=== PATIENT | male | born 1955 | race Caucasian/White ===

== ENCOUNTER 2024-09-20 19:13 | Inpatient (IN) | payer MEDICARE, SELFPAY ==
[2024-09-20] VITALS (7 sets, daily range): BP systolic 90–108; BP diastolic 60–83; PULSE 104–127; RESP 18–20; TEMP 36.6–36.8; O2SAT 95–100; BMI 45.6; BMI 44.2
--- NOTE | 2024-09-20 19:33 | RAD_ITS ---
PROCEDURE: CHEST 1 VIEW (PORTABLE) REASON FOR EXAM: 69-year-old male, chest tightness, bilateral lower extremity edema and right upper extremity edema. TECHNIQUE: Frontal view of the chest. COMPARISON: None. FINDINGS: Visualization is slightly limited by body habitus. There is severe cardiomegaly and prominent pulmonary vasculature. Small right and trace left pleural effusions. No focal consolidation or pneumothorax. The bones are unremarkable. RAD/Chest 1 View (Portable) IMPRESSION: Findings of CHF/fluid overload. Reading Location: [id number]
--- NOTE | 2024-09-20 19:33 | EKG12_ITS ---
Test Reason : CP Blood Pressure : */* mmHG Vent. Rate : 116 BPM Atrial Rate : * BPM P-R Int : * ms QRS Dur : 84 ms QT Int : 282 ms P-R-T Axes : * 52 191 degrees QTcB Int : 391 ms Atrial fibrillation with rapid ventricular response Low voltage QRS Nonspecific T wave abnormality Abnormal ECG No previous ECGs available Confirmed by JONE PHAN, TUCKER ([id number]), content editor GILDA ALMONTE ([id number]) on 09/23/2024 1:06:38 PM Referred By: JUDY Confirmed By: TUCKER BECERRIL MD
[2024-09-20 19:45] LABS: Absolute Lymphocyte Count 0.57 X10^3/uL (0.83-4.51); Basophil# 0.02 X10^3/uL; Basophil% 0.1 % (0-1); Eosinophil# 0.02 X10^3/uL; Eosinophils% 0.1 % (0-5); Hematocrit 43.4 % (40-54); Hemoglobin 13.7 g/dL (13.0-16.5); Lymphocyte # 0.57 X10^3/ul (0.83-4.51); Lymphocyte % 4.1 % (19-41); Mean Corp Hgb Conc 31.6 g/dL (32-36); Mean Corpuscular Hgb 30.8 pg (27.0-32.0); Mean Corpuscular Volume 97.5 fL (80-94); Mean Platelet Vol. 10.4 fl (6.2-12.0); Monocyte# 1.17 X10^3/uL; Monocyte% 8.4 % (0-10); NRBC Flagged by Analyzer 0 % (0-5); Neutrophil # 12.04 X10^3/uL (2.7-7.7); POSITIVE DIFFERENTIAL YES; Platelet Count 213 K/mm3 (150-450); RBC Distribution Width CV 15.6 % (11.6-14.6); RBC Distribution Width SD 55.1 fl (35.1-43.9); Red Blood Count 4.45 M/mm3 (4.6-6.2); White Blood Count 13.9 K/mm3 (4.4-11.0)
[2024-09-20 19:53] LABS: International Normalized Ratio 1.3; Prothrombin Time (Protime)PT. 16.2 SECONDS (11.7-14.9)
[2024-09-20 20:15] LABS: Anion Gap 9 (5-15); BUN 77 mg/dL (7-18); BUN/Creat Ratio 26.9 RATIO (10-20); Calcium,Total 9.8 mg/dL (8.5-10.1); Chloride 109 mmol/L (98-107); Creatinine, Serum 2.86 mg/dL (0.70-1.30); EST Glomerular Filtration Rate 23 mL/min (>60); Est Glom Filt Rate - Afr Amer 28 mL/min (>60); Glucose 89 mg/dL (74-106); Potassium 5.2 mmol/L (3.5-5.1); Sodium Level 138 mmol/L (136-145); Troponin-I HS (w/2H Reflex) 1055 pg/mL (3.0-78.0)
--- NOTE | 2024-09-20 20:23 | EDS_ITS ---
HPI History of Present Illness Chief Complaint: Chest Pain Detail of Chief Complaint: Chest tightness with shortness of breath nausea and radiation to the right Informant: patient Onset/Context/Timing Onset: Today (1300) Activity at onset: light activity (Patient was bathing himself) Timing: Intermittent Quality: Positive for Tightness Location: Substernal Current Severity: Gone Maximum Severity: Moderate Worsened By: Nothing Relieved By: Nothing Associated Symptoms: Positive for Nausea, Dyspnea and - (Radiation to the right shoulder); Negative for Vomiting, Diaphoresis, Cough, Fever, Lightheadedness, Acid Reflux or Palpitations Narrative Narrative: Patient is a 69-year-old male. He has history of gout, hypertension, atrial fibrillation on Eliquis, hypercholesterolemia who presents because of chest tightness that started at 1300 while bathing himself associated with nausea and shortness of breath and radiation to his right shoulder. He states this morning when he awoke his right hand was swollen. He now reports swelling of his entire right arm with discoloration. He has swelling of his legs and feet that are chronic with discoloration. Patient did not take his Eliquis this morning. Patient is on metoprolol for rate control. He discontinued his digoxin 3 weeks ago. He thought he had a refill. He did not. Apparently his doctor retired and he is scheduled to see the nurse practitioner. He moved from the [facility]. Patient denies fever, chills night sweats. Nu[place] headache, visual, ocular auditory symptoms. Patient denies upper respiratory symptoms. Prior Similar Symptoms: No Recent Illness/Hospitalization: No CVD Risk Factors: Positive for Hypertension and Hypercholesterolemia; Negative for Diabetes or Family History 1' </=55 PE Risk Factors: Negative for Recent Travel/Surgery, Recent Immobilization, Prior DVT or PE, Cancer or OCP + Smoking + >/=35 TAD Risk Factors: Positive for Hypertension; Negative for Marfan's Syndrome or Family History [facility] Medical History (Updated 09/20/24 @ 22:[address] Dalton Hawk, DO) Atrial fibrillation GERD (gastroesophageal reflux disease) CHF (congestive heart failure) Hyperlipemia Hypertension Gout Home Medications ?Medication ?Instructions ?Recorded ?Last Taken ?Type amlodipine 10 mg tablet 20 mg PO QHS 09/20/24 Unknow n History apixaban 5 mg tablet (Eliquis) 5 mg PO BID 09/20/24 Un known History atorvastatin 40 mg tablet 40 mg PO QPM 09/20/24 Unknow n History digoxin 125 mcg (0.125 mg) tablet 125 mcg PO DAILY 07/04 Unknown History lisinopril 20 2 tab PO DAILY 09/20/24 Unkn own History mg-hydrochlorothiazide 25 mg tablet (Zestoretic) metoprolol succinate 50 mg 100 mg PO DAILY 09/20/24 Un known History tablet,extended release 24 hr Allergy/AdvReac Type Severity Reaction Status Date / Time No Known Allergies Allergy Verified 09/20/24 19:18 Surgical History (Updated 09/20/24 @ 20:27 by Maryam Jha) History of partial surgical removal of colon Hx of cholecystectomy Social History (Updated 09/20/24 @ 20:[address] Sawyer Franco MD) household members: spouse Smoking Status: Former smoker ROS ROS ED Constitutional Constitutional ED: Denies chills, fever(s), subjective, sweats or weight loss Eyes Eyes: Reports none ENT ENT ED: Denies ear pain or rhinorrhea Cardiovascular Cardiovascular: Reports as per HPI and orthopnea; Denies paroxysmal nocturnal dyspnea Respiratory/Chest Respiratory/Chest: Reports dyspnea, dyspnea on exertion, orthopnea and other Details: Patient has stable 3 pillow orthopnea. ; Denies cough, paroxysmal nocturnal dyspnea or sputum Gastrointestinal Gastrointestinal: Reports nausea; Denies abdominal pain or vomiting Genitourinary Genitourinary ED: Denies dysuria, hematuria or urinary frequency Musculoskeletal Musculoskeletal: Denies arthralgias or myalgias Integumentary Reports rash Neurologic Neurologic: Denies paresthesias or weakness Hematologic/Lymphatic Hematologic/Lymphatic: Denies easy bleeding or easy bruising EXAM Physical Exam Const Vital Signs: 09/20/24 19:16 09/20/24 20:15 09/20/24 20:23 Temperature 98.2 F Temperature Source Oral Pulse Rate 127 H 111 H Respiratory Rate 18 20 H Respiratory Effort Respiratory Pattern Blood Pressure 108/83 H 98/79 Blood Pressure Mean 91 85 Pulse Ox 100 95 95 Oxygen Delivery Method Room Air Room Air Room Air 09/20/24 20:23 09/20/24 21:00 09/20/24 22:00 Temperature Temperature Source Pulse Rate 105 H 105 H Respiratory Rate 18 18 Respiratory Effort Short of Breath Labored Accessory Muscle Use Respiratory Pattern Tachypnea Blood Pressure 101/72 90/60 Blood Pressure Mean 81 70 Pulse Ox 98 95 Oxygen Delivery Method Room Air Room Air 09/20/24 22:09 Temperature 98.3 F Temperature Source Pulse Rate 104 H Respiratory Rate 18 Respiratory Effort Respiratory Pattern Blood Pressure 90/60 Blood Pressure Mean 70 Pulse Ox 95 Oxygen Delivery Method Positive well nourished and well developed Constitutional Narrative: BMI is 45.7. General Appearance ED: well developed; Negative for pallor HEENT Reports dry mucous membranes HEENT Narrative: Head is atraumatic normocephalic. Patient has poor dentition. Uvula midline. No deviation with protrusion. normocephalic and atraumatic Mouth ED: Yes dry mucous membranes Mouth: dry mucous membranes Eyes PERRL and EOMs intact bilaterally General Eye ED: Negative for pale conjunctiva or scleral icterus Neck no lymphadenopathy, supple and no JVD Neck Narrative: Unable to assess for JVD due to body habitus. Chest Wall inspection of chest normal and palpation of chest normal Resp normal respiratory effort and No clear to auscultation bilaterally Auscultation: rales bilateral base Cardio no murmurs Rate: tachycardic Rhythm: abnormal rhythm irregularly irregular GI normal to inspection, nondistended, normoactive bowel sounds, soft to palpation, non-tender and non-distended; Negative for hepatosplenomegaly or no masses GI Narrative: Abdominal exam limited due to body habitus. Back/Spine no CVA tenderness Extremity Extremity Narrative: Venous stasis dermatitis with pitting edema of the lower extremities. Difficult to palpate pulse due to amount of edema lower extremity exam right upper extremity. Neuro oriented x3 and CN's II-XII intact bilaterally Sensorium / Orientation: awake and alert Psych mental status grossly normal Skin No no rashes or lesions noted Skin Narrative: Venous stasis dermatitis General Skin Exam: Negative for jaundice or pallor Heart Score History: Highly Suspicious ECG: Nonspecific Repolarization Age: >/= 65 years Risk Factors: 1 or 2 Risk Factors Troponin: >/=3 x Normal Limit Score: 8 MDM MDM MDM Narrative Medical decision making narrative: Patient's history is concerning for cardiac ischemia. Clinically he is fluid overloaded. He also has suspicion for DVT of the right upper extremity. Vascular study is not available at this time. Since patient's last dose of Eliquis was last night will start on heparin for non-STEMI. Will administer metoprolol for his heart rate and since he was on dig we will give him a dose of dig as well. There are no old labs for comparison. Nurse protocol was initiated in triage. Lab Data Lab results narrative: White count slightly elevated 13.9 which is nonspecific. He has has no bandemia. H&H is normal. Coags reveal slight elevation of PT. Electrolyte panel mL mild hyper per kalemia. CO2 is 20 with a normal anion gap. BUN and creatinine are 77 and 2.86. Patient not know baseline. Glucose is normal. Troponin is 1055. Labs: Laboratory Results - last 24 hr 09/20/24 09/20/24 09/20/24 19:15 20:46 21:48 WBC 13.9 H RBC 4.45 L Hgb 13.7 Hct 43.4 MCV 97.5 H MCH 30.8 MCHC 31.6 L RDW Std Deviation 55.1 H RDW Coeff of Bobbi 15.6 H Plt Count 213 MPV 10.4 Immature Gran % (Auto) 0.300 Neut % (Auto) 87.0 H Lymph % (Auto) 4.1 L Troup % (Auto) 8.4 Eos % (Auto) 0.1 Baso % (Auto) 0.1 Absolute Neuts (auto) 12.0 H Absolute Lymphs (auto) 0.57 L Nucleated RBC % 0 PT 16.2 H 17.4 H INR 1.3 1.4 APTT 37.3 H Sodium 138 Potassium 5.2 H Chloride 109 H Carbon Dioxide 20.0 L Anion Gap 9 BUN 77 H Creatinine 2.86 H Est GFR (MDRD) Af Amer 28 L Est GFR (MDRD) Non-Af 23 L BUN/Creatinine Ratio 26.9 H Glucose 89 Calcium 9.8 Troponin I High Sens 1055 H* 4392 H* Radiography Chest X-Ray - ED: 1 View and Read by ED Physician (Single view chest x-ray reveals findings consistent with congestive heart failure with mild pleural effusion. Borderline cardiomegaly.) Diagnostic Testing: Clinical Impression(s) from Imaging Studies Chest X-Ray 09/20/24 19:33 IMPRESSION: Findings of CHF/fluid overload. Reading Location: [facility] EKG Initial EKG: Attestation: I personally reviewed and interpreted this EKG as follows: Interpretation: Atrial Fibrillation (Rate is 116. Cures duration 84 ms. QT duration 282 ms. Bertrand is normal. There is evidence of low voltage which may be due to body habitus. He also has nonspecific ST-T wave changes which may be due to atrial fibs or cardiac ischemia. There is no old EKG for comparison.) Management Discussion w/another healthcare provider: Hospitalist (Case was discussed with Dr. Sinclair. He was informed the patient is a non-STEMI, A-fib RVR and CHF. Also need to evaluate for DVT of the right upper extremity.) Treatment and Re-Evaluation :: With a heart score of 8 will contact hospitalist for admission. Critical Care Time Critical Care Time: Yes Critical care time (excluding procedures): 30-74 minutes (32), Including time spent: (History, physical, documentation, independent rotation of laboratory results, chest x-ray and treatment for non-ST elevation PA with A-fib RVR and heart failure.), Discussing w/Patient &/or Family/Life Skills Coordinator, Discussing w/Consultants and Arranging Admission or Transfer Discharge Plan Dx/Rx/DC Orders Clinical Impression: Non-ST elevated myocardial infarction, Atrial fibrillation with RVR, Acute exacerbation of CHF (congestive heart failure), Lymphedema of both lower extremities, Swelling of right upper extremity, Hypotension Disposition Disposition: Acute Care Hospital [facility] Discharge Date/Time: 09/20/24 22:39
[2024-09-20] MEDS: Metoprolol Tartrate 5 MG/5 ML Vial IV (20:57)
[2024-09-20] MEDS: Digoxin 250 MCG/ML Ampul IV (21:03)
[2024-09-20] MEDS: Heparin Injection (Vial) 5,000 UNIT/ML VIAL 4000 UNIT IV (21:05)
[2024-09-20] MEDS: HEPARIN/D5w 25,000 UNITS 25,000 UNITS/250 ML IV.SOLN. 10 UNITS CONT INF (21:06)
[2024-09-20 21:10] LABS: Partial Thromboplast Time 37.3 Seconds (24.1-36.2)
[2024-09-20 21:42] LABS: Reflex Troponin-HS? (from REC) Y
[2024-09-20 21:44] LABS: International Normalized Ratio 1.4; Prothrombin Time (Protime)PT. 17.4 SECONDS (11.7-14.9)
--- NOTE | 2024-09-20 21:59 | PCM.HP.STD ---
[facility] General Date of Admission: 09/20/24 Date of Service: 09/20/24 Chief Complaint: Chest Tightness, Palpitations, SOB and Right Arm Swelling. HPI Narrative PARVIZ CAM, is a 69 M with a past medical history of essential hypertension; on metoprolol, lisinopril-hydrochlorothiazide and amlodipine, hyperlipidemia; on atorvastatin, former history of tobacco abuse, morbid obesity; with BMI of 45.7 this admission, history of atrial fibrillation; on apixaban and recently stopped digoxin ~3 weeks ago when he ran out of this medication, CAD; s/p NSTEMI, chronic bilateral lower extremity edema with chronic venous stasis, history of cholecystectomy, history of partial resection of colon, GERD, gout and OA who presents to [facility] ER complaining of chest pain, palpitations, shortness of breath and severe swelling of the Right arm. Mr. Cam reports his symptoms began at approximately 1 PM earlier today while bathing when he developed the abrupt-onset of nausea and shortness of breath with severe chest tightness that was substernal and radiating into his Right shoulder. He went on to state that this morning when he awoke he noted that his right hand was swollen with discoloration of his and entire right arm that worsened throughout the day. Patient states that he did not take his apixaban this this morning - but he had been taking till that point in time. He also ran out of his digoxin approximately 3 weeks ago because he thought he had a refill but he did not and apparently his doctor retired and he was waiting for a scheduled appointment with a nurse practitioner as he recently moved from the [facility]. He admits to increasing lower extremity edema and has stable 3-pillow orthopnea with nausea but he denies fever, chills, visual changes, runny nose, sore throat, ear pain, abdominal pain, vomiting, dysuria, arthralgias, myalgias, headache or paresthesias but he does admit to a red area of infection on his Right calf for the past ~2 weeks he has been trying to treat unsuccessfully with topical antibiotic ointment. In the ER he was noted to have an elevated initial troponin of 1,055 pg/mL followed by a second upward trending troponin of 8,106 pg/mL consistent with non-ST elevation [place] complicated by severe Right upper extremity swelling and discoloration concerning for underlying DVT with corresponding elevated d-dimer of 3.3 present on admission compounded by CXR positive for findings of CHF/fluid overload with a corresponding elevated BNP of 691 pg/mL present on admission along with Atrial Fibrillation; with RVR and laboratory evidence of suspected GLENN with elevated serum creatinine of 2.86 mg/dL and BUN of 77 mg/dL present on admission (with no previous lab studies available for comparison) in addition to Hyperkalemia of 5.2 mmol/L present on admission and Leukocytosis of 13.9 K present on admission suspected to Right Calf with Cellulitis. He was then admitted to the PCU for ongoing care for stay that is expected to extend beyond 2 midnights. [facility], [facility] Medical History (Updated 09/21/24 @ 06:[address] Dalton Hawk DO) Atrial fibrillation GERD (gastroesophageal reflux disease) CHF (congestive heart failure) Hyperlipemia Hypertension Gout Home Medications ?Medication ?Instructions ?Recorded ?Last Taken ?Type allopurinol 300 mg tablet 300 mg PO DAILY gout 09/20/24 Unknown History amlodipine 10 mg tablet 20 mg PO QHS BP 09/20/24 09/19/24 History apixaban 5 mg tablet (Eliquis) 5 mg PO BID blood thinner 09/20/24 09/19/24 History atorvastatin 40 mg tablet 40 mg PO QPM cholesterol 09/20/24 09/19/24 History digoxin 125 mcg (0.125 mg) tablet 125 mcg PO DAILY 09/20/24 Unknown History lisinopril 20 2 tab PO DAILY BP 09/20/24 09/19/24 History mg-hydrochlorothiazide 25 mg tablet (Zestoretic) metoprolol succinate 50 mg 100 mg PO DAILY HR 09/20/24 09/19/24 History tablet,extended release 24 hr Allergy/AdvReac Type Severity Reaction Status Date / Time No Known Allergies Allergy Verified 09/20/24 19:18 Family History (Updated 09/20/24 @ 23:06 by Aislinn Salinas) Brother Diabetes Mother Diabetes Surgical History History of partial surgical removal of colon Hx of cholecystectomy Social History household members: spouse Smoking Status: Former smoker ROS ROS Narrative Review of Systems: Constitutional: Patient denies fever or chills. Eyes: Patient denies changes in vision or discharge from eyes. ENT: Patient denies runny nose, sore throat or ear pain. Resp: Patient admits to dyspnea on exertion that progressed to shortness of breath at rest as per HPI. CV: Patient admits to chest tightness of the substernal and intermittent with 3 pillow orthopnea as per HPI. GI: Patient admits to nausea but he denies vomiting, abdominal pain, diarrhea or constipation. : Patient denies dysuria, hematuria or urinary frequency. MSK: Patient admits to swelling and pain in his Right upper extremity as per HPI. Skin: Patient admits to swelling and discoloration of his Right upper extremity in addition to ne redness and swelling of his Right calf in the setting of chronic lower extremity lymphedema with chronic venous stasis. Psych: Patient denies symptoms of uncontrolled depression or anxiety. Neuro: Patient denies headache, paresthesias or focal neurologic deficits. Allergy: Patient denies lip swelling, tongue swelling or urticaria. Hematology: Patient denies easy bleeding or easy bruisability. Endocrinology: Patient denies polyuria, polydipsia or polyphagia. 14 point review of systems otherwise negative save for positives noted above in HPI. Vital Signs Vital Signs Vital Signs: 09/20/24 19:16 09/20/24 20:15 09/20/24 20:23 Temperature 98.2 F Temperature Source Oral Pulse Rate 127 H 111 H Respiratory Rate 18 20 H Respiratory Effort Respiratory Pattern Blood Pressure 108/83 H 98/79 Blood Pressure Mean 91 85 Pulse Ox 100 95 95 Oxygen Delivery Method Room Air Room Air Room Air 09/20/24 20:23 09/20/24 21:00 Temperature Temperature Source Pulse Rate 105 H Respiratory Rate 18 Respiratory Effort Short of Breath Labored Accessory Muscle Use Respiratory Pattern Tachypnea Blood Pressure 101/72 Blood Pressure Mean 81 Pulse Ox 98 Oxygen Delivery Method Room Air Weight Weight: 309 lb 4.937 oz Body Mass Index (BMI) 45.6 Physical Exam Const alert, oriented x3 and no apparent distress Constitutional Narrative: Morbidly obese. General Appearance: cooperative HEENT normocephalic, head/scalp atraumatic and hearing grossly normal bilaterally HEENT Narrative: Mucous membranes dry. Eyes PERRL, EOMs intact bilaterally and conjunctivae normal Neck no lymphadenopathy and supple Resp Resp Narrative: Diminished breath sounds throughout with bibasilar rales. Auscultation: rales Cardio Cardio Narrative: Irregularly irregular at approximately 104 bpm. GI normal to inspection, nondistended, normoactive bowel sounds, soft to palpation, non-tender and non-distended GI Narrative: Morbidly obese. Extremity Extremity Narrative: Right upper extremity appears swollen and discolored with sensitivity to palpation. Patient has evidence of chronic venous stasis dermatitis superimposed on chronic lower extremity lymphedema. Skin Skin Narrative: Right upper extremity appears swollen and discolored with sensitivity to palpation. Patient has evidence of chronic venous stasis dermatitis superimposed on chronic lower extremity lymphedema. Neuro oriented x3, CN's II-XII intact bilaterally, moves all extremities and no focal motor deficits Sensorium / Orientation: awake, alert, oriented to person, oriented to place and oriented to time Speech: speech normal Psych affect normal Results Medical Records Data Attestation: I reviewed the patient's medical records Lab / Micro Data Attestation: I reviewed the patient's lab results. 09/20/24 19:15 09/20/24 19:15 Labs: Laboratory Results - last 24 hr 09/20/24 19:15: WBC 13.9 H, RBC 4.45 L, Hgb 13.7, Hct 43.4, MCV 97.5 H, MCH 30.8, MCHC 31.6 L, RDW Std Deviation 55.1 H, RDW Coeff of Bobbi 15.6 H, Plt Count 213, MPV 10.4, Immature Gran % (Auto) 0.300, Neut % (Auto) 87.0 H, Lymph % (Auto) 4.1 L, Daniels % (Auto) 8.4, Eos % (Auto) 0.1, Baso % (Auto) 0.1, Absolute Neuts (auto) 12.0 H, Absolute Lymphs (auto) 0.57 L, Nucleated RBC % 0, PT 16.2 H, INR 1.3, Sodium 138, Potassium 5.2 H, Chloride 109 H, Carbon Dioxide 20.0 L, Anion Gap 9, BUN 77 H, Creatinine 2.86 H, Est GFR (MDRD) Af Amer 28 L, Est GFR (MDRD) Non-Af 23 L, BUN/Creatinine Ratio 26.9 H, Glucose 89, Calcium 9.8, Troponin I High Sens 1055 H* 09/20/24 20:46: PT 17.4 H, INR 1.4, APTT 37.3 H Imaging Radiology Impression Chest X-Ray 09/20/24 19:33 IMPRESSION: Findings of CHF/fluid overload. Reading Location: [id number] Imaging Services [address] [place] [address] [id number] Extremity Lower without Contra MR#: [id number] Acct: [id number] Name: PARVIZ CAM Rep #: [id number] : 1955 M 69 From: Elvis Christensen DO PCP: Care Physician,No Primary Status: ADM IN Study: Extremity Lower without Contra Date of Exam: 09/21/24 Exam# [id number] Ordering Dr: Dalton Hawk DO PROCEDURE: CT EXTREMITY LOWER RIGHT WITHOUT CONTRAST REASON FOR EXAM: Infection, redness, swelling. TECHNIQUE: Multiple, axial CT images of the right lower extremity are obtained without intravenous contrast. Coronal and sagittal 2D reformatted images were provided. COMPARISON: None. FINDINGS: There is diffuse subcutaneous edema involving the visualized right lower extremity with associated skin thickening. No loculated fluid collection is present to suggest abscess. There is diffuse muscular atrophy. There is partial visualization of a suprapatellar knee joint effusion. There is a soft tissue wound defect along the posterolateral aspect at the level of the mid fibula which measures approximately 4.1 x 3.0 cm in the cc and AP dimensions respectively. There are severe degenerative changes of the medial knee joint compartment. Plantar surface calcaneal spur is present. No acute fracture or dislocation is present. No acute osseous erosive changes are identified. CT/Extremity Lower without Contra IMPRESSION: 1. Soft tissue wound defect along the posterolateral aspect at the level of the mid fibula. 2. Diffuse subcutaneous edema with skin thickening likely related to a cellulitis. No definite loculated fluid collection to suggest abscess is seen. 3. Diffuse muscular atrophy. 4. Severe degenerative changes of the medial knee joint compartment. 5. Suprapatellar knee joint effusion. One or more dose reduction techniques were used (e.g., Automated exposure control, adjustment of the mA and/or kV according to patient size, use of iterative reconstruction technique). Reading Location: [facility] CC: Dr. 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: Signed Assessment & Plan Assessment/Plan (1) Non-ST elevated myocardial infarction: (2) Atrial fibrillation with RVR: (3) Acute exacerbation of CHF (congestive heart failure): QUALIFIERS: Heart failure type: unspecified Qualified Code(s): I50.9 - Heart failure, unspecified (4) Swelling of right upper extremity: (5) D-dimer, elevated: (6) Cellulitis: QUALIFIERS: Site of cellulitis: extremity Site of cellulitis of extremity: lower extremity Laterality: right Qualified Code(s): L03.115 - Cellulitis of right lower limb (7) Lymphedema of both lower extremities: (8) Hypotension: QUALIFIERS: Hypotension type: unspecified hypotension type Qualified Code(s): I95.9 - Hypotension, unspecified (9) GLENN (acute kidney injury): (10) Morbid obesity with BMI of 45.0-49.9, adult: PLAN: Plan 1. Elevated initial troponin of 1,055 pg/mL with second upwardly elevating troponin of 8,106 pg/mL consistent with non-ST elevation [place] in the setting of known previous CAD; with NSTEMI - Admit to PCU. Continue ECASA plus atorvastatin and start IV Heparin. Serialize troponin. Check echocardiogram to evaluate LVEF. Give acetaminophen prn for [id number] (level 1-5/10) pain or fever. Give morphine IV prn for severe (level 6-10/10) pain. Finally, we will consult [facility] to see this patient on rounds in the a.m. for further recommendations regarding [facility] this admission without appreciated in advance. 2. Atrial Fibrillation; with RVR after recent cessation of oral digoxin complicating #1 - Patient treated with IV digoxin in ER with order placed to resume oral digoxin as previous to minimize risk of hypotension. 3. AE CHF; of uncertain type with CXR positive for Fluid overload/CHF with corresponding elevated BNP of 691 pg/mL present on admission along with Hypotension of ~90 mmHg systolic present on admission compounding #1 & #2 - Give furosemide 40 mg IV daily and check daily BNP and CXR to follow trend of hopeful improvement. 4. Suspected GLENN with elevated serum creatinine of 2.86 mg/dL and BUN of 77 mg/dL present on admission (with no previous lab studies available for comparison) in addition to Hyperkalemia of 5.2 mmol/L present on admission adding to the medical complexity of #1 - #3 - Give IV albumin to expand intravascular volume without decreased concern worsening volume overload. Recheck renal indices and BMP daily to follow trend. 5. Leukocytosis of 13.9 K present on admission suspected to be due to Cellulitis of the Right Calf with fluid drainage (with CT negative for abscess) adding to the burden of disease outlined from #1 - #4 - Check CT scan of the RLE and start empiric IV piperacillin-tazobactam plus IV vancomycin and culture wound in addition to MRSA PCR of wound. 6. Morbid obesity; with BMI of 45.7 this admission - Weight loss will be recommended. Check TSH. This complicates his case and may hamper recovery. 7. Chronic bilateral lower extremity edema with chronic venous stasis - Noted. 8. Essential Hypertension; on metoprolol, lisinopril-hydrochlorothiazide and amlodipine - Hold scheduled antihypertensives with severe hypotension noted on admission. 9. Hyperlipidemia; on atorvastatin - Resume statin and check Lipid Profile in light of #1. 10. Former history of tobacco abuse - Noted. 11. History of cholecystectomy - Noted. 12. History of partial resection of colon - Noted. 13. GERD - Patient currently not on pharmacologic treatment. We will start pantoprazole 40 mg po daily in light of severe illness outlined above. 14. Gout - Stable with no evidence of acute flare. 15. OA - Give acetaminophen prn as per pain scale noted above. 16. DVT prophylaxis - Patient on IV Heparin for #1 & #2. Total time: Approximately (but not less than) 75 minutes. Charges/Coding Visit Charges Inpatient E&M: 36184 Init Hosp L3
[2024-09-20 22:28] LABS: Troponin-I HS 4392 pg/mL (3.0-78.0)
--- NOTE | 2024-09-20 22:31 | EKG12_ITS ---
Test Reason : ADMISSION EKG Blood Pressure : */* mmHG Vent. Rate : 111 BPM Atrial Rate : * BPM P-R Int : * ms QRS Dur : 88 ms QT Int : 326 ms P-R-T Axes : * 74 196 degrees QTcB Int : 443 ms Atrial fibrillation with rapid ventricular response Nonspecific T wave abnormality Abnormal ECG When compared with ECG of 20-Sep-2024 19:23, MANUAL COMPARISON REQUIRED DATA IS UNCONFIRMED Confirmed by Jerod Chang ([id number]), editor trade journal LIBIA HOFFMAN ([id number]) on 09/21/2024 11:29:42 AM Referred By: Confirmed By: Jerod Chang
--- NOTE | 2024-09-20 22:31 | VDUE_ITS ---
Reason For Study Reason For Study: Swelling Right Proximal Left Proximal Right jugular vein is spontaneous, widely patent, Left subclavian vein is spontaneous, widely patent, phasic, with no intraluminal echogenicity noted. phasic, with no intraluminal echogenicity noted. Right subclavian vein is spontaneous, widely patent, phasic, with no intraluminal echogenicity noted. Right Lower Arm Right radial vein is compressible. Right ulnar vein is compressible. Right Arm Right axillary vein is spontaneous, patent, phasic, competent, compressible and demonstrates augmentation. Right brachial vein is compressible. Right cephalic vein is compressible. Right basilic vein is compressible. Procedure This was a unilateral right upper extremity venous doppler examination. Exam performed portable in patient room. VL/Venous Duplex US, Unilateral Interpretation Summary Deep veins of the right upper extremity are patent and compressible segmentally . There is no evidence of deep vein thrombosis. Superficial veins of the right upper extremity are patent and compressible segm entally. There is no evidence of superficial vein thrombosis. Ordering Physician: Dalton Hawk Performed By: Denise Harris RVT and Student ???
[2024-09-20 22:58] LABS: CPK Total, Creatine Kinase 151 U/L (39-308)
[2024-09-20 23:06] LABS: Hemoglobin A1c 5.3 % (3.8-5.6)
[2024-09-21] VITALS (15 sets, daily range): BP systolic 80–102; BP diastolic 47–74; PULSE 62–129; RESP 13–20; TEMP 36.4–36.8; O2SAT 92–98
[2024-09-21 00:16] LABS: Cholesterol 137 mg/dL (200); High Density Lipoprotein 36 mg/dL; Triglycerides 76 mg/dL; Troponin-I HS 8106 pg/mL (3.0-78.0); Very Low Density Lipoprotein 15 mg/dL (5-40)
--- NOTE | 2024-09-21 00:16 | CT_ITS ---
PROCEDURE: CT EXTREMITY LOWER RIGHT WITHOUT CONTRAST REASON FOR EXAM: Infection, redness, swelling. TECHNIQUE: Multiple, axial CT images of the right lower extremity are obtained without intravenous contrast. Coronal and sagittal 2D reformatted images were provided. COMPARISON: None. FINDINGS: There is diffuse subcutaneous edema involving the visualized right lower extremity with associated skin thickening. No loculated fluid collection is present to suggest abscess. There is diffuse muscular atrophy. There is partial visualization of a suprapatellar knee joint effusion. There is a soft tissue wound defect along the posterolateral aspect at the level of the mid fibula which measures approximately 4.1 x 3.0 cm in the cc and AP dimensions respectively. There are severe degenerative changes of the medial knee joint compartment. Plantar surface calcaneal spur is present. No acute fracture or dislocation is present. No acute osseous erosive changes are identified. CT/Extremity Lower without Contra IMPRESSION: 1. Soft tissue wound defect along the posterolateral aspect at the level of the mid fibula. 2. Diffuse subcutaneous edema with skin thickening likely related to a cellulit is. No definite loculated fluid collection to suggest abscess is seen. 3. Diffuse muscular atrophy. 4. Severe degenerative changes of the medial knee joint compartment. 5. Suprapatellar knee joint effusion. One or more dose reduction techniques were used (e.g., Automated exposure contr ol, adjustment of the mA and/or kV according to patient size, use of iterative reconstruction technique). Reading Location: [facility]
[2024-09-21] MEDS: Albumin Human 25% (100 mL) 25 GM/100 ML BAG IV (00:29)
[2024-09-21] MEDS: Aspirin 81 MG TAB.CHEW 324 MG PO (00:29)
[2024-09-21] MEDS: Vancomycin HCl 2,000 MG in 0.9% Normal Saline (500mL Bag) 500 ML 250 MG IV (01:09)
[2024-09-21] MEDS: Piperacil/Tazobactam 3.375 GM in 0.9% Normal Saline (50mL MB+) 50 ML IV ×4 (01:12→21:15)
--- NOTE | 2024-09-21 02:54 | PCM.RX.CS ---
Consult Antibiotic Management Pharmacy has been consulted to manage selected antibiotic: Vancomycin Type of Intervention Type of Consult: New start Labs Labs: Sodium 138 mmol/L (136-145) 09/20/24 19:15 Potassium 5.2 mmol/L (3.5-5.1) H 09/20/24 19:15 Chloride 109 mmol/L (98-107) H 09/20/24 19:15 Carbon Dioxide 20.0 mmol/L (21.0-32.0) L 09/20/24 19:15 Anion Gap 9 (5-15) 09/20/24 19:15 BUN 77 mg/dL (7-18) H 09/20/24 19:15 Creatinine 2.86 mg/dL (0.70-1.30) H 09/20/24 19:15 Est GFR (MDRD) Af Amer 28 mL/min (>60) L 09/20/24 19:15 Est GFR (MDRD) Non-Af 23 mL/min (>60) L 09/20/24 19:15 BUN/Creatinine Ratio 26.9 RATIO (10-20) H 09/20/24 19:15 Glucose 89 mg/dL (74-106) 09/20/24 19:15 Dosing Weight Weight used for dosin kg Estimated Creatinine Clearance Estimated Creatinine Clearance: 32.9 Goal Trough Goal Trough: 10-15 mcg/mL Pharmacy Plan for Drug Dosing Pharmacy Plan for Drug Dosing: Pharmacy Service will continue to monitor and adjust dosing as required. LOADING DOSE 2GM GIVEN 09/21 @ 0109. START 1250MG Q24H AND DRAW TROUGH PRIOR TO 3RD DOSE Follow-Up Labs Follow-Up Labs: Trough: Vancomycin Date/Time Labs Ordered Labs to be done on [date and time ordered]: 09/23 @ 0100
[2024-09-21 03:51] LABS: Partial Thromboplast Time 153.8 Seconds (24.1-36.2)
[2024-09-21] MEDS: Acetaminophen 325 MG Tablet 650 MG PO (05:32)
--- NOTE | 2024-09-21 05:55 | ECHOD_ITS ---
Reason For Study Reason For Study: NSTEMI Procedure This was a 2D Doppler, Color Flow transthoracic echocardiogram. Exam performed portable in patient room. Left Ventricle Normal LV size. The left ventricular ejection fraction is 30 %. There is moderate to severe global hypokinesis of the left ventricle. Right Ventricle Normal RV size. Normal systolic function. Atria The left atrium is severely enlarged. The right atrium is moderately enlarged. Mitral Valve Bileaflet diffuse mitral valve thickening. Moderate (2+) eccentric mitral valve insufficiency. Tricuspid Valve Normal tricuspid valve. Moderate (2+) tricuspid valve insufficiency. Pulmonary artery systolic pressure is 58 mmHg. Moderate pulmonary hypertension. Aortic Valve Trisinus/trileaflet aortic valve. Moderate focal aortic valve calcification. Peak aortic valve gradient 72 mmHg. Mean aortic valve gradient 43 mmHg. Severe aortic stenosis. Moderately severe (3+) aortic valve insufficiency. Pulmonic Valve Normal pulmonic valve. Mild (1+) pulmonic valve insufficiency. Great Vessels Normal aortic root. The pulmonary artery is normal size. The inferior vena cava is dilated. Pericardium/Pleural No pericardial effusion. Small left pleural effusion. MMode/2D Measurements & Calculations LVIDd: 5.3 cm IVSd: 0.98 cm LVOT diam: 2.0 cm LVIDs: 4.1 cm LVPWd: 1.1 cm LVOT area: 3.1 cm2 RVDd: 4.7 cm FS: 23.1 % Ao root diam: 2.9 cm LAV(MOD-bp): 127.7 ml LVAd ap4: 35.1 cm2 LAV(MOD-bp) Indexed: 52.1 ml/m2 LVLd ap4: 9.7 cm LAV(MOD-sp2): 113.3 ml EDV(MOD-sp4): 107.2 ml LAV(MOD-sp4): 135.0 ml EDV(sp4-el): 107.9 ml LVAs ap4: 28.5 cm2 LVLs ap4: 9.3 cm ESV(MOD-sp4): 74.1 ml ESV(sp4-el): 74.4 ml EF(MOD-sp4): 30.9 % EF(sp4-el): 31.1 % LVAd ap2: 46.0 cm2 SV(MOD-sp4): 33.1 ml SV(MOD-sp2): 49.7 ml LVLd ap2: 10.4 cm SI(MOD-sp4): 13.5 ml/m2 SI(MOD-sp2): 20.3 ml/m2 EDV(MOD-sp2): 168.8 ml EDV(sp2-el): 173.0 ml LVAs ap2: 37.4 cm2 LVLs ap2: 9.7 cm ESV(MOD-sp2): 119.2 ml ESV(sp2-el): 122.9 ml EF(MOD-sp2): 29.4 % SV(sp4-el): 33.5 ml LA dimension(2D): 5.4 cm LA A4 area: 34.8 cm2 RA A4 area: 28.7 cm2 Doppler Measurements & Calculations MV E max frederic: 97.5 cm/sec Ao V2 max: 421.3 cm/sec AI max frederic: 339.3 cm/sec Ao max P.5 mmHg AI max P.1 mmHg Ao V2 mean: 313.0 cm/sec Ao mean P.3 mmHg AI dec slope: 314.2 cm/sec2 Ao V2 VTI: 84.0 cm AI P1/2t: 316.3 msec AV (velocity ratio): 0.22 YOLI(I,D): 0.69 cm2 YOLI(V,D): 0.71 cm2 LV V1 max: 96.1 cm/sec SV(LVOT): 57.6 ml PA V2 max: 71.6 cm/sec LV V1 max P.8 mmHg LV V1 mean P.2 mmHg LV V1 mean: 69.5 cm/sec LV V1 VTI: 18.6 cm TR max frederic: 362.9 cm/sec TR max P.7 mmHg ECHO/Echo Complete Interpretation Summary Normal LV size. The left ventricular ejection fraction is 30 %. There is moderate to severe global hypokinesis of the left ventricle. The left atrium is severely enlarged. The right atrium is moderately enlarged. Moderate (2+) eccentric mitral valve insufficiency. Moderate pulmonary hypertension. Severe aortic stenosis. Moderately severe (3+) aortic valve insufficiency. Ordering Physician: Dalton Hawk Performed By: Nazanin Montano RDCS
--- NOTE | 2024-09-21 07:41 | PCM.CONS.C ---
Assessment & Plan Assessment/Plan (1) Aortic valve stenosis: QUALIFIERS: Cardiac valve disease etiology: nonrheumatic Qualified Code(s): I35.0 - Nonrheumatic aortic (valve) stenosis PLAN: Patient's aortic valve stenosis appears to be at significant by preliminary echocardiographic criteria and physical exam. He does appear to be in heart failure as well and appears to have depressed LV function on the pulmonary echo. The formal reading of the echo was pending at this time. Further recommendations will be pending the further evaluation of the patient's comorbid states and final echo readings. (2) Atrial fibrillation with RVR: PLAN: Patient is in atrial fibrillation with rapid ventricular spots which she has a known history of. He has been treated with combination metoprolol and Lanoxin for rate control and has been on Eliquis which she stopped at least 24 hours ago. The patient also had sudden onset of his right upper extremity edema yesterday. He has chronic bilateral lower extremity edema and venous stasis disease. (3) GLENN (acute kidney injury): PLAN: Patient denies any history of acute renal or chronic renal disease. However upon admission his GFR is 23 with a BUN of 77 and creatinine of 2.86. He was not on diuretic therapy other than hydrochlorothiazide in his home environment for hypertension therapy. He has been treated with IV furosemide since admission. As it does appear he is volume overloaded. (4) Swelling of right upper extremity: PLAN: Patient had sudden onset of his right upper extremity consistent with a possible DVT. Ultrasound is pending and the patient is currently on heparin. There is chronic bilateral lower extremity edema related to venous stasis disease. Further evaluation and treatment pending the outcome of the ultrasound. (5) Hyperlipemia: QUALIFIERS: Hyperlipidemia type: unspecified Qualified Code(s): E78.5 - Hyperlipidemia, unspecified PLAN: Patient has longstanding history of hyperlipidemia. He is on atorvastatin 40 mg daily in his home environment this will be continued. (6) CHF (congestive heart failure): QUALIFIERS: Heart failure type: systolic Heart failure chronicity: acute Qualified Code(s): I50.21 - Acute systolic (congestive) heart failure PLAN: Patient CHF is probably valvular as well as global LV systolic dysfunction. He does have significant aortic stenosis by physical exam and estimated minute peak gradient of 70 mmHg. The patient will be gently diuresed he does have signs of hypoperfusion with his renal function deteriorating which is new by his reports. I would also recommend that we hold his amlodipine and Zestoretic. We should try to gently reinstitute Lopressor 25 mg twice daily for rate control and reinstitute due to his Lanoxin. Lanoxin should probably be decreased to 0.125 mg every other day after a full milligram loading dose over the next couple of days. The patient is very complicated his troponins are elevated that is probably multifactorial it is highly likely he has coronary disease on top of his valvular heart disease and LV dysfunction. At some point in time he will need to be cathed for evaluation of his coronary anatomy. But we need to maximize his renal function and further evaluate the right upper extremity swelling. PLAN: Plan 1. Will continue with rate control with Lanoxin for his atrial fibrillation and gently add Lopressor tartrate 25 mg twice daily with hold parameters for blood pressure less than 90. 2. Continue with gentle diuresis and monitor his renal function for recovery. 3. Evaluate the right upper extremity with ultrasound which has been ordered. 4. Further definitive long-term management pending the outcome of the testing that is pending at this time. 5. Dr. Powers will be taken over the service tomorrow morning. HPI Consult Data Date of Consult: 09/21/24 HPI Narrative HPI Narrative: PARVIZ ORDONEZ, is a 69 M who presents history of atrial fibrillation controlled with Lanoxin and Eliquis. He also carries a history of hypertension hyperlipidemia former smoker morbid obesity his BMI of 45. He is not certain of how much of the apixaban he was taking. He knows he did not take it on Thursday day of admission. He has been off of his Lanoxin for approximately 3 weeks. He has a history of chronic venous stasis disease and is noted increasing bilateral lower extremity edema. He also has a history of chronic stable orthopnea. Patient denies any fevers or chills denies any type of an infectious process. He does not have a history of valvular heart disease to his knowledge his brother does have a cardiomyopathy but he has never been told he had a cardiomyopathy. On presentation the patient's initial troponin was 1055 his second troponin was up to 8000. He does have renal disease with a creatinine of 2.86 and a BUN of 77. We do not have any previous labs available. It does appear that he has cellulitis of his right lower extremity. What brought him to the hospital was approximately 1 PM to 06/29/2025 the patient while bathing developed abrupt onset of nausea and shortness of breath with chest tightness. This radiated into his right shoulder. He did state that earlier that day upon arising from sleep he noted that his right hand and entire right arm were discolored and swollen that worsened throughout the day on 09/20/2024. Patient denies any previous known history of coronary disease. He was seen in a train master at Dr. Scaheffer in [place] who retired and therefore he could not get back in to be seen. He admitted that he had not been seen routinely. An ultrasound of the right upper extremity and echocardiogram are pending at this time. The echo was being performed as I examined the patient it appears that he has significant aortic stenosis with global LV systolic dysfunction. There is also aortic valve insufficiency. [facility] Medical History (Updated 09/21/24 @ 08:[address] Jerod Chang MD) Atrial fibrillation GERD (gastroesophageal reflux disease) CHF (congestive heart failure) Hyperlipemia Hypertension Gout Home Medications ?Medication ?Instructions ?Recorded ?Last Taken ?Type allopurinol 300 mg tablet 300 mg PO DAILY gout 09/20/24 Unknown History amlodipine 10 mg tablet 20 mg PO QHS BP 09/20/24 09/19/24 History apixaban 5 mg tablet (Eliquis) 5 mg PO BID blood thinner 09/20/24 09/19/24 History atorvastatin 40 mg tablet 40 mg PO QPM cholesterol 09/20/24 09/19/24 History digoxin 125 mcg (0.125 mg) tablet 125 mcg PO DAILY 09/20/24 Unknown History lisinopril 20 2 tab PO DAILY BP 09/20/24 09/19/24 History mg-hydrochlorothiazide 25 mg tablet (Zestoretic) metoprolol succinate 50 mg 100 mg PO DAILY HR 09/20/24 09/19/24 History tablet,extended release 24 hr Allergy/AdvReac Type Severity Reaction Status Date / Time No Known Allergies Allergy Verified 09/20/24 19:18 Family History Brother Diabetes Mother Diabetes Surgical History History of partial surgical removal of colon Hx of cholecystectomy Social History household members: spouse Smoking Status: Former smoker ROS Constitutional Constitutional: Reports as per HPI Eyes Eyes: Reports systems reviewed and no addt'l complaints, except as documented ENT HEENT: Reports systems reviewed and no addt'l complaints, except as documented Cardiovascular Cardiovascular: Reports as per HPI Respiratory/Chest Respiratory/Chest: Reports as per HPI Gastrointestinal Gastrointestinal: Reports systems reviewed and no addt'l complaints, except as documented Genitourinary Genitourinary: Reports as per HPI Musculoskeletal Musculoskeletal: Reports as per HPI Integumentary Integumentary: Reports as per HPI and skin swelling Neurologic Neurologic: Reports systems reviewed and no addt'l complaints, except as documented Psychiatric Psychiatric: Reports systems reviewed and no addt'l complaints, except as documented Endocrine Endocrinology: Reports systems reviewed and no addt'l complaints, except as documented Hematologic/Lymphatic Hematologic/Lymphatic: Reports as per HPI Allergic/Immunologic Allergic/Immunologic: Reports systems reviewed and no addt'l complaints, except as documented Physical Exam Const alert and oriented x3 Constitutional Narrative: Patient is resting flat in the bed he is morbidly obese. HEENT normocephalic Eyes EOMs intact bilaterally Neck Neck Narrative: Neck is thick and no JVD is observed. Chest Chest Narrative: Increased AP diameter due to body habitus. Resp normal respiratory effort Auscultation: diminished lung sounds diffuse Cardio Rate: tachycardic Rhythm: abnormal rhythm irregularly irregular Heart Sounds: S1 normal, S2 normal and murmur systolic III/ harsh holo left sternal border, right sternal border and sternal notch; Negative for click or gallop Peripheral Pulses: radial pulses present bilateral diminished and dorsalis pedis pulses present bilateral diminished GI soft to palpation and no bruits Extremity Extremity Narrative: Patient has diffuse brawny edema in his lower extremities the right upper extremity is edematous and discolored all the way from the shoulder to the hand. General Extremity: edema right upper extremity severe and lower extremity moderate and left lower extremity moderate Skin Skin Narrative: Brawny edematous changes on the lower extremities bilaterally. Neuro Neuro Narrative: Alert and oriented x 3. Psych mental status grossly normal Risk Stratification Risk Stratification Applicable: Yes Age >/= 65: Yes >/= 3 CAD Risk Factors (HTN, HLD, DM, family hx of CAD, or current smoker): Yes Aspirin Use in the Past 7 Days: No Severe Angina (>/= episodes in 24 hours): No EKG ST Changes >/= 0.5mm: No Positive Cardiac Marker: Yes KERON Risk Stratification Score: 3 KERON % Risk: 13% Risk Charges/Coding Visit Charges Inpatient E&M: 50081 Init Hosp L3 Objective Data Vital Signs: Vital Signs Temp Pulse Resp BP Pulse Ox O2 Del Method FiO2 97.8 F 94 16 88/52 L 95 Room Air 09/21/24 07:09/21/24 07:09/21/24 07:19 09/21/24 07:19 09/21/24 07:19 09/21/24 07:09/21/24 02:42 Oxygen Delivery Method Room Air Weight: 299 lb 13.259 oz Body Mass Index (BMI) 44.2 Intake & Output: Intake and Output for Last 24 Hours 09/19/24 09/20/24 09/21/24 23:59 23:59 23:59 Intake Total 0 / 0 998.17 / 998.17 Output Total 0 / 0 Balance 0 / 0 998.17 / 998.17 Lab / Micro Data Attestation: I reviewed the patient's lab results. 09/20/24 19:15 09/20/24 19:15 Labs: Laboratory Results - last 24 hr 09/20/24 19:15: WBC 13.9 H, RBC 4.45 L, Hgb 13.7, Hct 43.4, MCV 97.5 H, MCH 30.8, MCHC 31.6 L, RDW Std Deviation 55.1 H, RDW Coeff of Bobbi 15.6 H, Plt Count 213, MPV 10.4, Immature Gran % (Auto) 0.300, Neut % (Auto) 87.0 H, Lymph % (Auto) 4.1 L, Surry % (Auto) 8.4, Eos % (Auto) 0.1, Baso % (Auto) 0.1, Absolute Neuts (auto) 12.0 H, Absolute Lymphs (auto) 0.57 L, Nucleated RBC % 0, PT 16.2 H, INR 1.3, Sodium 138, Potassium 5.2 H, Chloride 109 H, Carbon Dioxide 20.0 L, Anion Gap 9, BUN 77 H, Creatinine 2.86 H, Est GFR (MDRD) Af Amer 28 L, Est GFR (MDRD) Non-Af 23 L, BUN/Creatinine Ratio 26.9 H, Glucose 89, Hemoglobin A1c 5.3, Calcium 9.8, Troponin I High Sens 1055 H*, B-Natriuretic Peptide 691.0 H 09/20/24 20:46: PT 17.4 H, INR 1.4, APTT 37.3 H, D-Dimer Quant (PE/DVT) 3.30 H* 09/20/24 21:48: Total Creatine Kinase 151, Troponin I High Sens 4392 H*, TSH 2.950 09/20/24 23:44: Troponin I High Sens 8106 H*, Triglycerides 76, Cholesterol 137, LDL Cholesterol 86, VLDL Cholesterol 15, HDL Cholesterol 36 L 09/21/24 03:01: APTT 153.8 H* Rhythm Strip Rhythm Strip: A-fib Rate: 116 Cardiology Labs/Tests 09/20/24 19:15: WBC 13.9 H, RBC 4.45 L, Hgb 13.7, Hct 43.4, MCV 97.5 H, MCH 30.8, MCHC 31.6 L, Plt Count 213, MPV 10.4, Immature Gran % (Auto) 0.300, Neut % (Auto) 87.0 H, Lymph % (Auto) 4.1 L, Surry % (Auto) 8.4, Eos % (Auto) 0.1, Baso % (Auto) 0.1, Absolute Neuts (auto) 12.0 H, Nucleated RBC % 0, PT 16.2 H, INR 1.3, Sodium 138, Potassium 5.2 H, Chloride 109 H, Carbon Dioxide 20.0 L, Anion Gap 9, BUN 77 H, Creatinine 2.86 H, Est GFR (MDRD) Af Amer 28 L, Est GFR (MDRD) Non-Af 23 L, BUN/Creatinine Ratio 26.9 H, Glucose 89, Hemoglobin A1c 5.3, Calcium 9.8, B-Natriuretic Peptide 691.0 H 09/20/24 20:46: PT 17.4 H, INR 1.4, APTT 37.3 H, D-Dimer Quant (PE/DVT) 3.30 H* 09/20/24 23:44: Triglycerides 76, Cholesterol 137, LDL Cholesterol 86, VLDL Cholesterol 15, HDL Cholesterol 36 L 09/21/24 03:01: APTT 153.8 H* Rhythm: EKG: ECHO: Stress Test: Cardiac Cath: PCI: CT Surgery: Holter monitor: EPS: PPM: CXR: Chest CT Scan: Radiography Diagnostic Testing: Radiology Impression Chest X-Ray 09/20/24 19:33 IMPRESSION: Findings of CHF/fluid overload. Reading Location: [facility] Lower Extremity CT 09/21/24 00:16 IMPRESSION: 1. Soft tissue wound defect along the posterolateral aspect at the level of the mid fibula. 2. Diffuse subcutaneous edema with skin thickening likely related to a cellulitis. No definite loculated fluid collection to suggest abscess is seen. 3. Diffuse muscular atrophy. 4. Severe degenerative changes of the medial knee joint compartment. 5. Suprapatellar knee joint effusion. One or more dose reduction techniques were used (e.g., Automated exposure control, adjustment of the mA and/or kV according to patient size, use of iterative reconstruction technique). [facility]
[2024-09-21] MEDS: Aspirin E.C. 81 MG Tablet PO (08:09)
[2024-09-21] MEDS: Digoxin 125 MCG Tablet PO (08:09)
[2024-09-21] MEDS: Clopidogrel Bisulfate 75 MG Tablet PO (08:13)
[2024-09-21] MEDS: Pantoprazole Sodium 40 MG Tablet PO (08:13)
--- NOTE | 2024-09-21 11:10 | CASEMGMT ---
RN CM ANALYTICS SPECIALIST CM?to room to meet with patient for initial transition planning/care coordination assessment. RN CM?introduced self and role at [facility]. Pt voices understanding and consents to assessment?at this time. Pt sitting up in chair in room in no distress at this time. Pt is A/O at this time and answers all questions appropriately. Care providers, pharmacy, and demographics verified/updated at this time. Strata:?2 PCP: KYLE Wooten in [place]. Pt has 1st appt scheduled w/her 10/06 @ 1:40 PM. This was added to pt's discharge plan. Specialists: none Preferred Pharmacy: [facility] @ discharge. Otherwise, goes to [facility] in [place] Insurance: [facility] Prescription Benefit: yes Living Will/HPOA: Pt does not currently have LW/HCPOA and would like to complete, stating he would like his to be his agent and his daughter, Opal, to be 1st alternative. Pt made aware if SW unable to meet with him while he is @ [facility], he can make appt w/SW as OP. LNOK: , Aranza. Daughter, Opal Living Arrangements: Live w/his in one-story home w/no basement. 2 small steps to enter home. Pt states was independent up until he twisted his left knee about 3 weeks ago and then the left one started hurting a week later. He states he has not left the house since. He is not sure how well he will be able to navigate the steps once returning home. He has not taken a shower since then, has just been sponge-bathing. Pt manages his own medications and appts. does the laundry. They use [employer] a lot and order groceries to be delivered. Transportation:Pt states drives self and states no transportation concerns at this time. also drives. DME: States has the following DME: small bench in the shower, cane, rollator, lift chair (just purchased), CPAP Pt states no need for further DME at this time. HHC/SNF: No hx of either. Discussed discharge planning. Questions answered. Pt wishes to return home and would like [facility] and declines wanting list of other HHC options [facility]. Call placed to [facility] and referral made. Discussed BLE wounds/dressing changes. He was made aware HHC nurse typically only comes weekly. He states his would be able to learn to do these and could do them daily, if needed. He also states Rosemary, wound nurse recommended he f[facility]u [facility]. Pt wishes to return home and states has no concerns with going home at time of discharge. CM?to follow for any further discharge planning/needs. Pt voices no further concerns/needs at this time. Advised pt to ask for CM?if any further questions/concerns/needs arise. Voices understanding. PLAN: Home w/C. Kaitlin COLEN RN CM
--- NOTE | 2024-09-21 11:13 | WOUNDNOTE ---
skin photo: left lower leg
--- NOTE | 2024-09-21 11:13 | WOUNDNOTE ---
wound photo: right anterior lower leg
--- NOTE | 2024-09-21 11:14 | WOUNDNOTE ---
wound photo: right posterolateral lower leg
[2024-09-21 12:36] LABS: Mucous, Urine 0 SEEN /hpf (<or=2+)
[2024-09-21 12:39] LABS: Glucose, Dipstick Normal (Normal); Ketone-Dipstick 5 mg/dl (Negative); Leukocyte Esterase-Dipstick 25 /ul (Negative); Nitrite-Dipstick Negative (Negative); Occult Blood-Urine Negative /ul (Negative); Protein-Dipstick 30 mg/dl (Negative); Urine Bilirubin Dipstick Negative (Negative); Urine Clarity Sl. Cloudy (Clear); Urine Urobilinogen 1 mg/dl (Normal)
[2024-09-21 12:41] LABS: Color, Urine Dk Yello (Yellow)
[2024-09-21 12:53] LABS: Bacteria 1+ /hpf (None Seen); Hyaline Cast 0-5 SEEN /lpf (0-5); Red Blood Cells-Urine 0 SEEN /hpf (0-5); Squamous Epithelial Cells - UA 0-5 SEEN /hpf (0-5); White Blood Cells 0-5 SEEN /hpf (0-5)
--- NOTE | 2024-09-21 13:53 | CASEMGMT ---
Per therapy patient needs to go to a long-term facility for rehab. SW met with patient. Introduced self and role at [facility]. Patient confirmed he does feel weak and should go somewhere. SW provided patient with a list of long-term facility providers including quality and resource use data and consistent with patient?s preferred geographic region, medical needs, and insurance network were provided from the [employer] Guide. SW explained to patient he just needs to choose 3-4 he would be okay with and then SW will take care of contacting the facilities. Patient verbalized understanding. 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
[2024-09-21] MEDS: Acetaminophen 500 MG Tablet 1000 MG PO ×2 (14:01→21:15)
[2024-09-21 14:24] LABS: Partial Thromboplast Time 44.2 Seconds (24.1-36.2)
--- NOTE | 2024-09-21 16:45 | PCM.PN.HOSP ---
Subjective Subjective Blood pressure is a bit on the softer side today he denies any lightheadedness but does continue to endorse some chest pressure especially with his rising troponins. Objective Data Objective Data Vital Signs: Vital Signs Temp Pulse Resp BP Pulse Ox O2 Del Method FiO2 98.2 F 97 18 84/56 L 92 Room Air 21 09/21/24 14:28 09/21/24 14:28 09/21/24 14:28 09/21/24 14:28 09/21/24 14:28 09/21/24 14:28 09/21/24 02:42 Oxygen Delivery Method Room Air Weight: 299 lb 13.259 oz Body Mass Index (BMI) 44.2 Intake & Output: Intake and Output for Last 24 Hours 09/20/24 09/21/24 09/22/24 03:59 03:59 03:59 Intake Total 408.17 / 408.17 708.83 / 708.83 Output Total 250 / 250 Balance 408.17 / 408.17 458.83 / 458.83 Lab / Micro Data 09/20/24 19:15 09/20/24 19:15 Labs: Laboratory Results - last 24 hr 09/20/24 19:15: WBC 13.9 H, RBC 4.45 L, Hgb 13.7, Hct 43.4, MCV 97.5 H, MCH 30.8, MCHC 31.6 L, RDW Std Deviation 55.1 H, RDW Coeff of Bobbi 15.6 H, Plt Count 213, MPV 10.4, Immature Gran % (Auto) 0.300, Neut % (Auto) 87.0 H, Lymph % (Auto) 4.1 L, Banks % (Auto) 8.4, Eos % (Auto) 0.1, Baso % (Auto) 0.1, Absolute Neuts (auto) 12.0 H, Absolute Lymphs (auto) 0.57 L, Nucleated RBC % 0, PT 16.2 H, INR 1.3, Sodium 138, Potassium 5.2 H, Chloride 109 H, Carbon Dioxide 20.0 L, Anion Gap 9, BUN 77 H, Creatinine 2.86 H, Est GFR (MDRD) Af Amer 28 L, Est GFR (MDRD) Non-Af 23 L, BUN/Creatinine Ratio 26.9 H, Glucose 89, Hemoglobin A1c 5.3, Calcium 9.8, Troponin I High Sens 1055 H*, B-Natriuretic Peptide 691.0 H 09/20/24 20:46: PT 17.4 H, INR 1.4, APTT 37.3 H, D-Dimer Quant (PE/DVT) 3.30 H* 09/20/24 21:48: Total Creatine Kinase 151, Troponin I High Sens 4392 H*, TSH 2.950 09/20/24 23:44: Troponin I High Sens 8106 H*, Triglycerides 76, Cholesterol 137, LDL Cholesterol 86, VLDL Cholesterol 15, HDL Cholesterol 36 L 09/21/24 03:01: APTT 153.8 H* 09/21/24 11:00: APTT 44.2 H 09/21/24 11:50: Urine Color Dk Yello, Urine Clarity Sl. Cloudy, Urine pH 5.0, Ur Specific Celeste 1.020, Urine Protein 30 H, Urine Glucose (UA) Normal, Urine Ketones 5 H, Urine Occult Blood Negative, Urine Nitrite Negative, Urine Bilirubin Negative, Urine Urobilinogen 1 H, Ur Leukocyte Esterase 25 H, Urine RBC 0 SEEN, Urine WBC 0-5 SEEN, Ur Squamous Epith Cells 0-5 SEEN, Urine Bacteria 1+, Hyaline Casts 0-5 SEEN, Urine Mucus 0 SEEN Micro: Microbiology 09/21/24 00:25 Wound - Leg, Right Gram Stain - Final Radiography Diagnostic Testing: Radiology Impression Chest X-Ray 09/20/24 19:33 IMPRESSION: Findings of CHF/fluid overload. Reading Location: [facility] Venous Doppler Study 09/20/24 22:31 Interpretation Summary Deep veins of the right upper extremity are patent and compressible segmentally. There is no evidence of deep vein thrombosis. Superficial veins of the right upper extremity are patent and compressible segmentally. There is no evidence of superficial vein thrombosis. Ordering Physician: Dalton Hawk Performed By: Denise Harris RVT and Student ??? Lower Extremity CT 09/21/24 00:16 IMPRESSION: 1. Soft tissue wound defect along the posterolateral aspect at the level of the mid fibula. 2. Diffuse subcutaneous edema with skin thickening likely related to a cellulitis. No definite loculated fluid collection to suggest abscess is seen. 3. Diffuse muscular atrophy. 4. Severe degenerative changes of the medial knee joint compartment. 5. Suprapatellar knee joint effusion. One or more dose reduction techniques were used (e.g., Automated exposure control, adjustment of the mA and/or kV according to patient size, use of iterative reconstruction technique). Reading Location: [facility] Echocardiogram 09/21/24 05:55 Interpretation Summary Normal LV size. The left ventricular ejection fraction is 30 %. There is moderate to severe global hypokinesis of the left ventricle. The left atrium is severely enlarged. The right atrium is moderately enlarged. Moderate (2+) eccentric mitral valve insufficiency. Moderate pulmonary hypertension. Severe aortic stenosis. Moderately severe (3+) aortic valve insufficiency. Ordering Physician: Dalton Hawk Performed By: Nazanin Montano RDCS Rhythm Strip Rhythm Strip: A-fib Rate: 116 Physical Exam Narrative General: Alert, Oriented x3, Cooperative, No apparent distress HEENT: Atraumatic, PERRLA, EOMI, Normocephalic Oral: Moist Mucosa Neck: Supple, No JVD Lungs: Diminished, Normal air movement, No rhonchi, No wheeze, No rales Cardiovascular: Regular rate, Regular Rhythm, Normal S1, Normal S2, murmurs Abdomen: Soft, Non Tender, Non-Distended, No Hepato-splenomegaly Extremities: Right upper extremity edema with bilateral lower extremity edema, Capillary Refill Less than 3 Seconds Skin: Right lower extremity cellulitis with wound currently dressed Musculoskeletal: No Tenderness to Palpation of Joints or Extremities Neurological: No focal neurological deficits, Motor Exam 5/5 strength throughout, Sensory exam intact to light touch and pain Psych/Mental Status: Normal Affect, Appropriate Assessment & Plan Assessment/Plan (1) Non-ST elevated myocardial infarction: (2) Atrial fibrillation with RVR: (3) Acute exacerbation of CHF (congestive heart failure): QUALIFIERS: Heart failure type: unspecified Qualified Code(s): I50.9 - Heart failure, unspecified (4) Swelling of right upper extremity: (5) Cellulitis: QUALIFIERS: Site of cellulitis: extremity Site of cellulitis of extremity: lower extremity Laterality: right Qualified Code(s): L03.115 - Cellulitis of right lower limb PLAN: Plan 1. Non-STEMI in the setting of A-fib with RVR and acute on chronic systolic CHF/essential HTN/HLD ? Appreciate cardiology's assistance ? Continue the heparin drip ? Continue with digoxin ? Will limit his blood pressure medication secondary to his hypotension ? It is unclear if his hypotension is due to heart failure and A-fib or due to sepsis from a cellulitis because he is confounders as challenging to even call on his disease sepsis at this time ? Unclear what his baseline renal function is currently creatinine is 2.86 will recheck in the morning it is possible disease and GLENN just has chronic kidney disease ? Continue with metoprolol for rate control ? Echocardiogram demonstrates an EF of 30% with moderate to severe global hypokinesis of the left ventricle as well as moderate pulmonary hypertension severe aortic stenosis with severe aortic valve insufficiency ? Currently on Plavix as well ? Ultrasound of his right upper extremities negative for DVT 2. Lower extremity cellulitis on the right in the setting of lymphedema and chronic venous stasis ? CT of the lower extremities negative for an abscess does have some skin breakdown with dressing intact and weeping ? Continue with IV Zosyn and vancomycin ? If white count is improved tomorrow and his infections being treating may proceed and institute Lasix therapy to help with the his heart failure and non-STEMI DVT: Heparin drip Charges/Coding Visit Charges Inpatient E&M: 04757 Subs Hosp L2
[2024-09-21] MEDS: Ensure Plus High Protein 120 ML LIQUID PO (18:48)
[2024-09-21] MEDS: 0.9% Saline Lock 10 ML Syringe IV (21:15)
[2024-09-21] MEDS: Atorvastatin Calcium 40 MG Tablet PO (21:15)
[2024-09-21 23:16] LABS: Partial Thromboplast Time 38.5 Seconds (24.1-36.2)
--- NOTE | 2024-09-21 23:16 | NURSING ---
Pt BP has been low with systolic in the 80s. Dayshift and nightshift hospitalists are aware. Due to pt being fluid overloaded, sepsis fluid protocol has not been initiated per MDs. Anu Palmer RN
[2024-09-21] MEDS: Heparin Injection (Vial) 5,000 UNIT/ML VIAL IV (23:29)
[2024-09-22] VITALS (24 sets, daily range): BP systolic 64–95; BP diastolic 46–70; PULSE 91–116; RESP 16–24; TEMP 36.8–36.9; O2SAT 92–97
[2024-09-22] MEDS: Vancomycin HCl 1,250 MG in 0.9% Normal Saline (250mL Bag) 250 ML 167 MG IV (01:42)
[2024-09-22] MEDS: HEPARIN/D5w 25,000 UNITS 25,000 UNITS/250 ML IV.SOLN. 10 UNITS CONT INF (03:29)
[2024-09-22] MEDS: Piperacil/Tazobactam 3.375 GM in 0.9% Normal Saline (50mL MB+) 50 ML IV ×2 (05:33→13:48)
[2024-09-22] MEDS: Acetaminophen 500 MG Tablet 1000 MG PO ×2 (05:33→13:43)
[2024-09-22] MEDS: 0.9% Saline Lock 10 ML Syringe IV ×2 (05:34→09:40)
[2024-09-22 05:35] LABS: Absolute Lymphocyte Count 0.85 X10^3/uL (0.83-4.51); Absolute Neutrophil Count 7.1 X10^3/uL (2.0-7.7); Basophil# 0.04 X10^3/uL; Basophil% 0.4 % (0-1); Eosinophil# 0.19 X10^3/uL; Lymphocyte # 0.85 X10^3/ul (0.83-4.51); Lymphocyte % 9.2 % (19-41); Mean Corp Hgb Conc 33.3 g/dL (32-36); Mean Corpuscular Hgb 31.8 pg (27.0-32.0); Mean Corpuscular Volume 95.5 fL (80-94); Mean Platelet Vol. 9.9 fl (6.2-12.0); Monocyte# 1.11 X10^3/uL; NRBC Flagged by Analyzer 0 % (0-5); Neutrophil # 7.05 X10^3/uL (2.7-7.7); Platelet Count 199 K/mm3 (150-450); RBC Distribution Width CV 15.4 % (11.6-14.6); RBC Distribution Width SD 53.9 fl (35.1-43.9); Red Blood Count 3.77 M/mm3 (4.6-6.2); White Blood Count 9.3 K/mm3 (4.4-11.0)
[2024-09-22 05:44] LABS: Partial Thromboplast Time 60.7 Seconds (24.1-36.2)
[2024-09-22 05:49] LABS: Anion Gap 8 (5-15); BUN 85 mg/dL (7-18); BUN/Creat Ratio 26.6 RATIO (10-20); Calcium,Total 9.1 mg/dL (8.5-10.1); Chloride 111 mmol/L (98-107); EST Glomerular Filtration Rate 21 mL/min (>60); Est Glom Filt Rate - Afr Amer 25 mL/min (>60); Estimated Creatinine Clearance 29.42 ml/min; Glucose 97 mg/dL (74-106); Potassium 4.9 mmol/L (3.5-5.1); Sodium Level 137 mmol/L (136-145)
[2024-09-22] MEDS: Clopidogrel Bisulfate 75 MG Tablet PO (09:38)
[2024-09-22] MEDS: Pantoprazole Sodium 40 MG Tablet PO (09:38)
[2024-09-22] MEDS: Ensure Plus High Protein 120 ML LIQUID PO ×2 (09:39→11:16)
[2024-09-22] MEDS: Aspirin E.C. 81 MG Tablet PO (09:39)
[2024-09-22] MEDS: Furosemide 40 MG/4 ML Vial IV (09:39)
--- NOTE | 2024-09-22 10:01 | CASEMGMT ---
SW met with patient. SW asked patient if he and his had a chance to review the senior living list. Patient said they did, but have not chosen anywhere yet. Patient said they can pick places today, but he needed a pen or pencil. SW provided patient with a pencil. SW will check back with patient today for his SNF choices. 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
[2024-09-22] MEDS: Digoxin 125 MCG Tablet PO (11:02)
[2024-09-22] MEDS: Amiodarone 360 MG in Dextrose 5% Viaflo Bag 192.8 ML 33.3 MG CONT INF (11:04)
--- NOTE | 2024-09-22 11:41 | NURSING ---
[address] Stern stopped amio aware of low bp asymptomatic states dizzy when moving up before amio when he went to bathroom in recliner now denies lightheadedness/dizziness on cpap for a nap
--- NOTE | 2024-09-22 11:57 | NURSING ---
md does not feel septic - has chf overloaded no ivf ordered
[2024-09-22] MEDS: 0.9% Normal Saline (250mL Bag) 250 ML 999 ML IV (12:14)
--- NOTE | 2024-09-22 12:15 | NURSING ---
iv bolus given per order ns 250cc at 999cc/hr due to patient low bp dizzy lightheaded blurry visioon Dr. Powers present and aware of patient sx
[2024-09-22 12:40] LABS: Partial Thromboplast Time 49.3 Seconds (24.1-36.2)
--- NOTE | 2024-09-22 13:25 | NURSING ---
went back to room with Dr. Stern ordered to tx to icu report given assisted back to bed and patient taken up to icu
--- NOTE | 2024-09-22 15:01 | PN.CARD_ITS ---
Subjective Subjective Patient was complaining of dizziness this morning and was hypotensive with his blood pressure in the 70s systolic. Patient's heart rate was elevated this morning. He was started on amiodarone. He was also given 1 dose of Lasix. Due to his hypotension he was given 250 mL fluid bolus which helped his dizziness to some extent. He is still hypotensive. His heart rate has improved and his amiodarone has been discontinued for now. He denies any chest pain. Has some orthopnea. Patient has multiple ongoing medical issues including morbid obesity, acute renal failure, severe aortic stenosis, moderate to severe arctic insufficiency, severe LV dysfunction with an EF of 30%, non-STEMI with a high sensitive troponin that went up to around 8000. Objective Data Vital Signs: Vital Signs Temp Pulse Resp BP Pulse Ox O2 Del Method FiO2 98.2 F 103 H 16 92/63 96 Room Air 09/22/24 09:31 09/22/24 14:30 09/22/24 14:30 09/22/24 14:30 09/22/24 14:30 09/22/24 14:30 09/22/24 02:00 Oxygen Delivery Method Room Air Weight: 299 lb 13.259 oz Body Mass Index (BMI) 44.2 Intake & Output: Intake and Output for Last 24 Hours 09/20/24 09/21/24 09/22/24 23:59 23:59 23:59 Intake Total 0 / 0 1473.00 / 1473.00 878.60 / 878.60 Output Total 250 / 250 Balance 0 / 0 1223.00 / 1223.00 878.60 / 878.60 Lab / Micro Data 09/22/24 05:21 09/22/24 05:21 Labs: Laboratory Results - last 24 hr 09/21/24 21:25: APTT Cancelled 09/21/24 22:35: APTT 38.5 H 09/22/24 05:21: WBC 9.3, RBC 3.77 L, Hgb 12.0 L, Hct 36.0 L, MCV 95.5 H, MCH 31.8, MCHC 33.3 D, RDW Std Deviation 53.9 H, RDW Coeff of Bobbi 15.4 H, Plt Count 199, MPV 9.9, Immature Gran % (Auto) 0.400, Neut % (Auto) 76.0 H, Lymph % (Auto) 9.2 L, Yates % (Auto) 12.0 H, Eos % (Auto) 2.0, Baso % (Auto) 0.4, Absolute Neuts (auto) 7.1, Absolute Lymphs (auto) 0.85, Nucleated RBC % 0, APTT 60.7 H, Sodium 137, Potassium 4.9, Chloride 111 H, Carbon Dioxide 18.0 L, Anion Gap 8, BUN 85 H , Creatinine 3.20 H, Estim Creat Clear Calc 29.42, Est GFR (MDRD) Af Amer 25 L, Est GFR (MDRD) Non-Af 21 L, BUN/Creatinine Ratio 26.6 H, Glucose 97, Calcium 9.1 09/22/24 11:49: APTT 49.3 H Micro: Microbiology 09/21/24 00:25 Wound - Leg, Right Gram Stain - Final 09/21/24 00:25 Wound - Leg, Right Wound Culture - Preliminary Staphylococcus aureus Rhythm Strip Rhythm Strip: A-fib Rate: 116 Cardiology Labs/Tests 09/21/24 21:25: APTT Cancelled 09/21/24 22:35: APTT 38.5 H 09/22/24 05:21: WBC 9.3, RBC 3.77 L, Hgb 12.0 L, Hct 36.0 L, MCV 95.5 H, MCH 31.8, MCHC 33.3 D, Plt Count 199, MPV 9.9, Immature Gran % (Auto) 0.400, Neut % (Auto) 76.0 H, Lymph % (Auto) 9.2 L, Yates % (Auto) 12.0 H, Eos % (Auto) 2.0, Baso % (Auto) 0.4, Absolute Neuts (auto) 7.1, Nucleated RBC % 0, APTT 60.7 H, Sodium 137, Potassium 4.9, Chloride 111 H, Carbon Dioxide 18.0 L, Anion Gap 8, B UN 85 H, Creatinine 3.20 H, Est GFR (MDRD) Af Amer 25 L, Est GFR (MDRD) Non-Af 21 L, BUN/Creatinine Ratio 26.6 H, Glucose 97, Calcium 9.1 09/22/24 11:49: APTT 49.3 H Rhythm: EKG: ECHO: Stress Test: Cardiac Cath: PCI: CT Surgery: Holter monitor: EPS: PPM: CXR: Chest CT Scan: Physical Exam Const alert and oriented x3 HEENT normocephalic Resp Resp Narrative: Bibasal crackles Cardio Cardio Narrative: Irregular rate Extremity Extremity Narrative: Right upper extremity is severely swollen and erythematous. Left upper extremity has no swelling. Bilateral lower extremities are wrapped but have about 1+ pitting edema at the knee level Assessment & Plan Assessment/Plan (1) CHF (congestive heart failure): QUALIFIERS: Heart failure type: systolic Heart failure chronicity: acute Qualified Code(s): I50.21 - Acute systolic (congestive) heart failure (2) Aortic valve stenosis: QUALIFIERS: Cardiac valve disease etiology: nonrheumatic Q ualified Code(s): I35.0 - Nonrheumatic aortic (valve) stenosis (3) Cellulitis: QUALIFIERS: Site of cellulitis: extremity Site of cellulitis of extremity: lower extremity Laterality: right Qualified Code(s): L03.115 - Cellulitis of right lower limb (4) Atrial fibrillation with RVR: (5) Non-ST elevated myocardial infarction: (6) GLENN (acute kidney injury): PLAN: Plan This is a very complex patient with multiple issues that are severe and causing him to decompensate at this time. At this time I recommend holding his diuresis and hydrating him gently. He may need Levophed if he continues to remain hypotensive. If patient continues to remain unstable then he may need coronary angiography even at the risk of worsening his kidney function and may need TAVR emergently. However it will be ideal if we can stabilize him. I feel that this patient will be better served in a tertiary center where they can proceed with procedure such as TAVR urgently if indicated in this patient. Discussed the plan with Dr. Pa at [facility] and he accepted the patient for transfer when bed is available. Charges/Coding Visit Charges Inpatient E&M: 86000 Subs Hosp L2
[2024-09-22] MEDS: Norepinephrine 8 MG in 0.9% Normal Saline (250mL Bag) 242 ML 9.4 MG CONT INF (16:46)
--- NOTE | 2024-09-22 17:43 | PCM.DC.SUM ---
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 Routine Comment: Reason for Consult:: RLE stasis ulcer Reason For Visit: NON-STEMI, GLENN, HYPOTENSION AND A-FIB WITH RVR Diagnosis Discharge Diagnosis (1) CHF (congestive heart failure): Status: Acute Code(s): I50.9 - Heart failure, unspecified Qualifiers: Heart failure type: systolic Heart failure chronicity: acute Qualified Code(s): I50.21 - Acute systolic (congestive) heart failure (2) Aortic valve stenosis: Status: Acute Code(s): I35.0 - Nonrheumatic aortic (valve) stenosis Qualifiers: Cardiac valve disease etiology: nonrheumatic Qualified Code(s): I35.0 - Nonrheumatic aortic (valve) stenosis (3) Cellulitis: Status: Acute Code(s): L03.90 - Cellulitis, unspecified Qualifiers: Site of cellulitis: extremity Site of cellulitis of extremity: lower extremity Laterality: right Qualified Code(s): L03.115 - Cellulitis of right lower limb (4) Atrial fibrillation with RVR: Status: Acute Code(s): I48.91 - Unspecified atrial fibrillation (5) Non-ST elevated myocardial infarction: Status: Acute Code(s): I21.4 - Non-ST elevation (NSTEMI) myocardial infarction (6) GLENN (acute kidney injury): Status: Acute Code(s): N17.9 - Acute kidney failure, unspecified Medications at Discharge Home Medications amlodipine 10 mg tablet 20 mg PO QHS BP 09/20/24 apixaban 5 mg tablet (Eliquis) 5 mg PO BID blood thinner 09/20/24 atorvastatin 40 mg tablet 40 mg PO QPM cholesterol 09/20/24 digoxin 125 mcg (0.125 mg) tablet 125 mcg PO DAILY 09/20/24 lisinopril 20 mg-hydrochlorothiazide 25 mg tablet (Zestoretic) 2 tab PO DAILY BP 09/20/24 metoprolol succinate 50 mg tablet,extended release 24 hr 100 mg PO DAILY HR 09/20/24 Hospital Course Operations None Procedures 2-D Echocardiogram and - (Upper extremity Doppler) Summary of Care Provided Minutes Spent on Discharge: 32 Hospital Course: Per HPI: PARVIZ ORDONEZ, is a 69 M with a past medical history of essential hypertension; on metoprolol, lisinopril-hydrochlorothiazide and amlodipine, hyperlipidemia; on atorvastatin, former history of tobacco abuse, morbid obesity; with BMI of 45.7 this admission, history of atrial fibrillation; on apixaban and recently stopped digoxin ~3 weeks ago when he ran out of this medication, CAD; s/p NSTEMI, chronic bilateral lower extremity edema with chronic venous stasis, history of cholecystectomy, history of partial resection of colon, GERD, gout and OA who presents to [facility] ER complaining of chest pain, palpitations, shortness of breath and severe swelling of the Right arm. Mr. Ordonez reports his symptoms began at approximately 1 PM earlier today while bathing when he developed the abrupt-onset of nausea and shortness of breath with severe chest tightness that was substernal and radiating into his Right shoulder. He went on to state that this morning when he awoke he noted that his right hand was swollen with discoloration of his and entire right arm that worsened throughout the day. Patient states that he did not take his apixaban this this morning - but he had been taking till that point in time. He also ran out of his digoxin approximately 3 weeks ago because he thought he had a refill but he did not and apparently his doctor retired and he was waiting for a scheduled appointment with a nurse practitioner as he recently moved from the [facility]. He admits to increasing lower extremity edema and has stable 3-pillow orthopnea with nausea but he denies fever, chills, visual changes, runny nose, sore throat, ear pain, abdominal pain, vomiting, dysuria, arthralgias, myalgias, headache or paresthesias but he does admit to a red area of infection on his Right calf for the past ~2 weeks he has been trying to treat unsuccessfully with topical antibiotic ointment. In the ER he was noted to have an elevated initial troponin of 1,055 pg/mL followed by a second upward trending troponin of 8,106 pg/mL consistent with non-ST elevation MD complicated by severe Right upper extremity swelling and discoloration concerning for underlying DVT with corresponding elevated d-dimer of 3.3 present on admission compounded by CXR positive for findings of CHF/fluid overload with a corresponding elevated BNP of 691 pg/mL present on admission along with Atrial Fibrillation; with RVR and laboratory evidence of suspected LGENN with elevated serum creatinine of 2.86 mg/dL and BUN of 77 mg/dL present on admission (with no previous lab studies available for comparison) in addition to Hyperkalemia of 5.2 mmol/L present on admission and Leukocytosis of 13.9 K present on admission suspected to Right Calf with Cellulitis. He was then admitted to the PCU for ongoing care for stay that is expected to extend beyond 2 midnights. Hospital Course: 1. Non-STEMI in the setting of A-fib with RVR and acute on chronic systolic CHF/essential HTN/HLD/acute renal failure ? Appreciate cardiology's assistance ? Continue the heparin drip ? Continue with digoxin ? Will limit his blood pressure medication secondary to his hypotension ? Had a 20-minute discussion with him and his about advance care planning in terms of prognosis of his current disease and the fact that he will need a higher level of care at this time. ? He did become very hypotensive this morning and was given a dose of Lasix which had some improvement however he was also started on amiodarone by cardiology did help control his A-fib which led to some hypotension at which point he was given a 250 cc bolus of normal saline which led to further hypotension with maps in the 50s therefore he was transferred to the ICU with the intention of starting a Levophed drip however blood pressure responded and this was not necessary. In the meantime cardiology was able to call a tertiary care center as the patient has severe aortic stenosis as well as moderate pulmonary hypertension and systolic CHF with global hypokinesis. They did agree to accept him onto their service for evaluation of TAVR as well as coronary artery stenting versus CABG. He did have an increase in his creatinine indicating acute renal failure though his baseline is still unclear. On admission it was 2.86 and now is up to 3.2 ? Echocardiogram demonstrates an EF of 30% with moderate to severe global hypokinesis of the left ventricle as well as moderate pulmonary hypertension severe aortic stenosis with severe aortic valve insufficiency ? Ultrasound of his right upper extremities negative for DVT 2. Lower extremity cellulitis on the right in the setting of lymphedema and chronic venous stasis ? CT of the lower extremities negative for an abscess does have some skin breakdown with dressing intact and weeping ? Continue with IV Zosyn and vancomycin, leukocytosis has resolved Physical Exam Narrative General: Alert, Oriented x3, Cooperative, No apparent distress HEENT: Atraumatic, PERRLA, EOMI, Normocephalic Oral: Moist Mucosa Neck: Supple, No JVD Lungs: Diminished, Normal air movement, No rhonchi, No wheeze, No rales Cardiovascular: Regular rate, Regular Rhythm, Normal S1, Normal S2, murmurs Abdomen: Soft, Non Tender, Non-Distended, No Hepato-splenomegaly Extremities: Right upper extremity edema with bilateral lower extremity edema, Capillary Refill Less than 3 Seconds Skin: Right lower extremity cellulitis currently wrapped Musculoskeletal: No Tenderness to Palpation of Joints or Extremities Neurological: No focal neurological deficits, Motor Exam 5/5 strength throughout, Sensory exam intact to light touch and pain Psych/Mental Status: Normal Affect, Appropriate Weight / BMI Weight Weight: 299 lb 13.259 oz Body Mass Index (BMI) 44.2 ABG / Lab / Microbiology Data 09/22/24 05:21 09/22/24 05:21 Laboratory: Laboratory Results - last 24 hr 09/21/24 21:25: APTT Cancelled 09/21/24 22:35: APTT 38.5 H 09/22/24 05:21: WBC 9.3, RBC 3.77 L, Hgb 12.0 L, Hct 36.0 L, MCV 95.5 H, MCH 31.8, MCHC 33.3 D, RDW Std Deviation 53.9 H, RDW Coeff of Bobbi 15.4 H, Plt Count 199, MPV 9.9, Immature Gran % (Auto) 0.400, Neut % (Auto) 76.0 H, Lymph % (Auto) 9.2 L, [place] % (Auto) 12.0 H, Eos % (Auto) 2.0, Baso % (Auto) 0.4, Absolute Neuts (auto) 7.1, Absolute Lymphs (auto) 0.85, Nucleated RBC % 0, APTT 60.7 H, Sodium 137, Potassium 4.9, Chloride 111 H, Carbon Dioxide 18.0 L, Anion Gap 8, BUN 85 H, Creatinine 3.20 H, Estim Creat Clear Calc 29.42, Est GFR (MDRD) Af Amer 25 L, Est GFR (MDRD) Non-Af 21 L, BUN/Creatinine Ratio 26.6 H, Glucose 97, Calcium 9.1 09/22/24 11:49: APTT 49.3 H Microbiology: Microbiology 09/21/24 00:25 Wound - Leg, Right Gram Stain - Final 09/21/24 00:25 Wound - Leg, Right Wound Culture - Preliminary Staphylococcus aureus D/C Instructions DC O2, CPAP, BIPAP Needs PSN CPAP & BiPAP: BiPAP & CPAP Settings per PSN Mode CPAP 09/22/24 02:00 Bipap Delivery Device Face Mask 09/22/24 02:00 BiPAP Expiratory Pressure 14 09/22/24 02:00 Fraction of Inspired Oxygen ( 21 09/22/24 02:00 FIO2) Home O2 Discharge instructions: No Meaningful Use Info Meaningful Use Meaningful Use Diagnoses (Choose all that apply): None applicable Ischemic Stroke Statin Dosing Therapy Reference: STATIN DOSE THERAPY REFERENCE: * Patients > 75 years receive moderate or high dose statin therapy. * Patients 75 years or YOUNGER should receive HIGH intensity statin dose unless contraindicated. You will be required to document reason for non-treatment if statin daily dose does not meet guidelines. HIGH DOSE STATIN THERAPY DAILY Atorvastatin > than or = to 40 mg Rosuvastatin > than or = to 20 mg Amlodipine + Atorvastatin > than or = to 2.5/40 mg Ezetimibe + Simvastatin 10/80 mg Simvastatin 80mg Discharge Plan Admission Admit Date/Time: 09/20/24 22:21 Attending Provider: Adrien Stern Primary Care Provider: Li Wooten NP Consulting Providers: Dalton Hawk; America Palencia; Keena Branch; Gregory Ojeda; Joey Taylor; Brett Barrera; Mireya Mclain; Jerod Chang; Yulisa Powers; Roel Sullivan; Ranjith Kimbrough; Brando Rogers NP; Ama Canales PA; Hunter Arevalo Discharge Orders/Prescriptions Prescriptions: No Action metoprolol succinate 50 mg tablet extended release 24 hr 100 mg PO DAILY lisinopril-hydrochlorothiazide [Zestoretic] 20-25 mg tablet 2 tab PO DAILY atorvastatin 40 mg tablet 40 mg PO QPM amlodipine 10 mg tablet 20 mg PO QHS Eliquis 5 mg tablet 5 mg PO BID digoxin 125 mcg (0.125 mg) tablet 125 mcg PO DAILY Patient Comments: REPORTS NOT TAKING FOR TWO WEEKS (09/20/2024) Referrals / Follow Up: Li Wooten NP, [facility] [Primary Care Provider] - 10/06/24 1:40 pm (As previously scheduled by pt. ) Disposition Disposition (needs filled in before D/C Order can be placed): Acute Care Hospital Charges/Coding Multi Select Codes Visit Charges Visit Charges: 26978 Disch Hosp Hospitalists' Procedures Procedures: 11412 Advncd Care Plan 30 Min
== END 2024-09-22 16:40 | disposition short-term general hospital (02) | DRG 280 ==
LOC: ED 21:07 → PCU 22:49 → ICU 09-22 14:38
PROVIDERS: Admitting Provider Internal Medicine; Emergency Provider Emergency Medicine; PCP Nurse Practitioner Family; Visit Provider Family Medicine
DX: I21.4 Non-ST elevation (NSTEMI) myocardial infarction (principal); I50.23 Acute on chronic systolic (congestive) heart failure; Z68.42 Body mass index [BMI] 45.0-49.9, adult; N17.9 Acute kidney failure, unspecified; L03.115 Cellulitis of right lower limb; I27.20 Pulmonary hypertension, unspecified; I11.0 Hypertensive heart disease with heart failure; I35.2 Nonrheumatic aortic (valve) stenosis with insufficiency; I48.91 Unspecified atrial fibrillation; I95.9 Hypotension, unspecified; K21.9 Gastro-esophageal reflux disease without esophagitis; M17.10 Unilateral primary osteoarthritis, unspecified knee; E87.5 Hyperkalemia; M10.9 Gout, unspecified; E66.01 Morbid (severe) obesity due to excess calories; E78.5 Hyperlipidemia, unspecified; I87.8 Other specified disorders of veins; I89.0 Lymphedema, not elsewhere classified; I25.10 Atherosclerotic heart disease of native coronary artery without angina pectoris; I25.2 Old myocardial infarction; Z87.891 Personal history of nicotine dependence; Z79.01 Long term (current) use of anticoagulants; Z90.49 Acquired absence of other specified parts of digestive tract
CPT/HCPCS: 36415; 71045; 73700; 80048; 80061; 81001; 82550; 83036; 83880; 84443; 84484; 85025; 85379; 85610; 85730; 87070; 87077; 87186; 87205; 93005; 93306; 93971; 94660; 97163; 97166; 97802; 99285; P9047; Q9957; A4216; J1940